=== PATIENT | female | born 1970 | race Caucasian/White ===

== ENCOUNTER 2020-06-22 11:16 | Emergency (ER) | payer OTHER ==
[~2020-06-22 11:16] MED LIST: AMOXICILLIN500 MG PO; CLARITHROMYCIN500 MG PO; PROTONIX 40 MG40 M1 PO
[2020-06-22 12:53] LABS: HEMOGLOBIN 14.2 gm/dl (12.3-15.3); RED BLOOD COUNT 4.86 M/UL (4.00-5.10); WHITE BLOOD COUNT 8.8 K/UL (4.5-11.0)
[2020-06-22 13:46] LABS: BUN/CREATININE RATIO 14 (0-10)
[2020-06-22] MEDS ORDERED: PROTONIX 40 MG40 M1 PO (15:25)
[2020-07-15] MEDS ORDERED: PROTONIX40 MG PO (08:28)
[2020-07-15] MEDS ORDERED: PROPRANOLOL HCL60 MG PO (08:28)
== END 2020-06-22 15:55 | disposition home or self-care (01) ==
LOC: ER1 11:16
PROVIDERS: Family Medicine
DX: R07.89 Other chest pain (principal); R11.0 Nausea; Z90.49 Acquired absence of other specified parts of digestive tract
CPT/HCPCS: 36415; 80053; 81001; 82150; 82550; 82553; 83690; 83874; 84484; 84703; 85025; 99284

== ENCOUNTER → 2020-07-15 | Day surgery (SDC) | payer OTHER ==
[~2020-07-15] MED LIST changes: +PROPRANOLOL HCL60 MG PO; +PROTONIX40 MG PO
== END | disposition home or self-care (01) ==
LOC: OR 07:48
PROVIDERS: Internal Medicine Gastroenterology
PROC: 0DB38ZX Excision of Lower Esophagus, Via Natural or Artificial Opening Endoscopic, Diagnostic (ICD-10-PCS; principal; 2020-07-15 07:00)
DX: K21.00 Gastro-esophageal reflux disease with esophagitis, without bleeding (principal); K29.50 Unspecified chronic gastritis without bleeding; K44.9 Diaphragmatic hernia without obstruction or gangrene; K22.2 Esophageal obstruction; M79.7 Fibromyalgia; E66.09 Other obesity due to excess calories; Z68.36 Body mass index [BMI] 36.0-36.9, adult; Z79.899 Other long term (current) drug therapy; Z20.822 Contact with and (suspected) exposure to COVID-19; Z90.49 Acquired absence of other specified parts of digestive tract
CPT/HCPCS: 84703; J2704; J7040